=== PATIENT | male | born 1960 | race Caucasian/White ===

== ENCOUNTER 2016-05-26 10:26 | Inpatient (IN) ==
[2016-05-26] MEDS ORDERED: MIDAZOLAM 2 MG/2 ML VIAL ONE ×4 (10:29→11:57)
[2016-05-26] MEDS ORDERED: SODIUM CHLORIDE 0.9% 1,000 ML IV STA (10:32)
[2016-05-26] MEDS ORDERED: MIDAZOLAM 2 MG/2 ML VIAL IV STA ×4 (10:34→12:15)
[2016-05-26] MEDS ORDERED: VECURONIUM 10 MG VIAL IV ONE (10:36)
[2016-05-26] MEDS ORDERED: VECURONIUM 10 MG VIAL IV STA (10:50)
--- NOTE | 2016-05-26 10:59 | Emergency Department Note ---
Arrival - Arrival Chief Complaint: Shortness of Breath Stated Complaint: Resp distress Intubated ED Nursing Triage Note: Pt brought by EMS for decreased LOC, agonal resp., pale colored. Pt was found with a wiskey bottle next to him and unable to locate his valium bottle. Pt intubated by EMS COMPANION. Mode of Arrival: Stretcher Limitations: No Limitations Source: EMS, RN Notes Reviewed Time Seen by Provider: 05/26/16 10:32 - History of Present Illness HPI Narrative: Patient is a 55-year-old white male who was found unresponsive at home by his family. His bottle of Valium was empty and the patient had been drinking alcohol. The patient was not breathing upon arrival of EMS. The patient was intubated and had improvement in his color. In route he began breathing some on his own. The patient is unable to provide a history due to being intubated. Onset (ago): hour(s) (1) Consistency: constant Severity: severe Quality: other (Drug and alcohol OD) Allergies/Adverse Reactions: Allergies Allergy/AdvReac Type Severity Reaction Status Date / Time No Known Allergies Allergy Verified 05/26/16 10:35 Home Medications: Home Medications Medication Instructions Recorded Confirmed Type Unable To Obtain [Unable to Obtain] 12/11/15 12/11/15 History Review of System - Review of System ROS unobtainable: due to endotracheal tube Medical,Surgical,& Family Hx - Social History Smoking Status: Unknown if ever smoked Frequency of Alcohol Use: Frequently Type of Drug Use: Prescription Drug Abuse Functional capacity: independent ambulation Exam Vital Signs: Vital Signs Temperature 96.7 F L 05/26/16 10:27 Pulse Rate 107 H 05/26/16 10:27 Respiratory Rate 12 05/26/16 10:56 Blood Pressure 140/77 05/26/16 10:27 O2 Sat by Pulse Oximetry 100 05/26/16 10:27 GENERAL: This is a acutely ill-appearing white male with endotracheal tube in position. VITAL SIGNS: Reviewed HEENT: Head is atraumatic and normocephalic. Pupils are equal round react to light. Extraocular movements are intact. Oropharynx is benign with moist mucous membranes. Endotracheal tube is present in the oropharynx. NECK: Neck is soft and supple without tenderness. There are no masses. There is no lymphadenopathy. LUNGS: Lungs are clear to auscultation. Breath sounds are equal bilaterally. Chest rises symmetrically. There is no chest wall tenderness. CV: Heart is regular rate and rhythm without murmurs rubs or gallops. ABDOMEN: Abdomen is soft, nontender to palpation. There are no abdominal abnormal masses palpated. There is no organomegaly. Bowel sounds are present and active. SKIN: Skin is warm and dry. No rash. EXTREMITIES: Patient has full range of motion without tenderness. There is no pedal edema. NEUROLOGIC: Arousable, moves all extremities. Patient has purposeful movements attempting to pull out the ET tube. Course - Consultations Consultation #1: Discussed with hospitalist. Patient will be admitted to their service. Time: 11:08 Procedures - ABG Interpretation ABG Interpretation 1 Interpretation: respiratory acidosis, metabolic acidosis, other (Acute respiratory failure with mixed respiratory and metabolic acidosis.) Results - Labs CBC & BMP: 05/26/16 10:50 05/26/16 10:50 Lab Results: I have reviewed the patients labs Labs: Laboratory Tests 05/26/16 10:50 WBC 21.3 H Hgb 15.4 Hct 47.0 Plt Count 237 Laboratory Tests 05/26/16 05/26/16 05/26/16 10:43 10:46 10:50 ABG pH 7.298 L ABG pCO2 49.5 H ABG pO2 128.0 H ABG HCO3 22.0 ABG Total CO2 21.0 L ABG O2 Saturation 98.4 ABG Base Excess -3.0 L Sodium Potassium Chloride Carbon Dioxide Anion Gap BUN Creatinine GFR Calculation BUN/Creatinine Ratio Glucose Calculated Osmolality Lactic Acid 4.4 H Calcium Magnesium 2.6 H AST ALT Troponin I 0.371 H Serum Alcohol < 15 L 05/26/16 10:50 ABG pH ABG pCO2 ABG pO2 ABG HCO3 ABG Total CO2 ABG O2 Saturation ABG Base Excess Sodium 147 H Potassium 4.7 Chloride 108 H Carbon Dioxide 27 Anion Gap 16.7 H BUN 9 Creatinine 1.90 H GFR Calculation 45 BUN/Creatinine Ratio 4.00 L Glucose 239 H Calculated Osmolality 298.4 Lactic Acid Calcium 8.8 Magnesium AST 38 H ALT 56 Troponin I Serum Alcohol - EKG EKG results: interpreted by ERMD - Impressions EKG: Sinus tachycardia with rate of 101, nonspecific intraventricular conduction delay. Normal axis. Nonspecific ST-T wave changes. - Diagnostic Findings Procedure: Chest x-ray: image reviewed by me (Right upper lobe infiltrate. Endotracheal tube is in position between the clavicular heads and above the lucian.), KUB x-ray: image reviewed by me (Nonspecific gas pattern. No radiopaque pill fragments are visualized.) Disposition Clinical Impression: Benzodiazepine overdose, Alcohol ingestion, Aspiration pneumonia, Acute respiratory failure, Lactic acidosis Disposition: Still a Patient Condition: Critical Time of Disposition: 11:01
[2016-05-26 11:00] LABS: Basophils # 0.1 10*3/uL (0.0-0.2); Basophils % 0.3 % (0.0-0.8); Eosinophils % 0.2 % (0.00-10.9); Hemoglobin 15.4 GM/DL (14.0-18.0); Immature Granulocytes % 1.5 %; Immature Granulocytes Absolute 0.32 #; Lymphocytes # 1.4 10*3/uL (1.4-4.0); Lymphocytes % 6.7 % (21.2-54.2); Mean Corpuscular HGB Conc 32.8 GM/DL (32-36); Mean Corpuscular Hemoglobin 32 PG (27-34); Mean Corpuscular Volume 96.7 FL (87-102); Mean Platelet Volume 11.3 FL (9.6-12.0); Monocytes % 4.7 % (1.7-12.7); Neutrophils # 18.4 10*3/uL (1.4-7.4); Neutrophils % 86.6 % (38.7-73.9); Platelet Count 237 10*3/uL (130-400); Red Blood Count 4.86 10*6/uL (3.8-5.5); Red Cell Distribution Width 13.3 % (9.3-17.3); White Blood Count 21.3 10*3/uL (4.5-13.71)
[2016-05-26 11:00] LABS: ABG Oxygen Saturation 98.4 % (95-100); ABG PCO2 49.5 MM HG (35-48); ABG PH 7.298 (7.35-7.45)
[2016-05-26] MEDS ORDERED: MIDAZOLAM 100 MG in SODIUM CHLORIDE 0.9% 80 ML IV SCH (11:00)
[2016-05-26] MEDS ORDERED: PIPERACILLIN/TAZOBACTAM 3,375 MG in SODIUM CHLORIDE 0.9% 100 ML IV STA (11:04)
[2016-05-26 11:08] LABS: PT Patient Result 10.5 SECS
--- NOTE | 2016-05-26 11:08 | EKG Report ---
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
[2016-05-26 11:22] LABS: Lactic Acid 4.4 MMOL/L (0.4-2.0)
[2016-05-26] MEDS ORDERED: SODIUM CHLORIDE 0.9% 100 ML IV ONE (11:24)
[2016-05-26] MEDS ORDERED: PIPERACILLIN/TAZOBACTAM 3,375 MG VIAL IV ONE (11:24)
[2016-05-26 11:26] LABS: Magnesium 2.6 MG/DL (1.8-2.4)
--- NOTE | 2016-05-26 11:27 | CT Report ---
Referring physician: Philip Calderón Exam: CT brain without contrast Date: May 26, 2016 Comparison: CT brain without contrast December 11, 2015 Reason: Mental status changes The patient is an Emergency Department patient on May 26, 2016. Technique: Axial images of the head were obtained without the use of contrast. Total DLP was 970.1 mGy*cm. Findings: No hydrocephalus or midline shift is present. There is no evidence of an acute infarction, recent intracranial hemorrhage or abnormal mass effect. The osseous structures appear intact. There is scattered mucosal thickening within the bilateral ethmoid air cells and minimal mucosal thickening within the sphenoid sinuses. The mastoid air cells are clear. Impression: 1. No acute intracranial process is identified. 2. Mild sinus disease. The CT exam was performed using one or more of the following dose reduction techniques: Automated exposure control and adjustment of the mA and/or kV according to patient size. PROCEDURE INTERPRETED AT [facility] DEPARTMENT OF RADIOLOGY Final Report Signed by: Dr. Marissa Gunter
--- NOTE | 2016-05-26 11:30 | XRay Report ---
Single view of the chest. Indication: Overdose. The heart is normal in size. An endotracheal tube is at the T3 level, well above the lucian. There is a right upper lobe infiltrate. No pneumothorax. Mild hypoaeration of the lung bases. No pleural effusion. Impression: Basilar hypoaeration. Right upper lobe infiltrate. PROCEDURE INTERPRETED AT [facility] DEPARTMENT OF RADIOLOGY Final Report Signed by: Dr. Charity Bunn
[2016-05-26 11:31] LABS: Alanine Aminotransferase 56 U/L (16-61); Albumin 4.1 G/DL (3.4-5.0); Alkaline Phosphatase 128 U/L (45-117); Aspartate Amino Transferase 38 U/L (0-37); Bilirubin,Total < 0.39 MG/DL (0.2-1.0); Blood Urea Nitrogen 9 MG/DL (7-18); Calcium 8.8 MG/DL (8.5-10.1); Glucose 239 MG/DL (74-106); Osmolality,Calculated 298.4 MOS/KG (273-304); Potassium 4.7 MMOL/L (3.5-5.1); Sodium 147 MMOL/L (136-145)
[2016-05-26 11:33] LABS: Troponin I Only 0.371 NG/ML (0.00-0.045)
--- NOTE | 2016-05-26 11:35 | XRay Report ---
Referring Physician: Philip Calderón Exam: XR KUB Date: May 26, 2016 at 10:44 AM Reason: Overdose Comparison: None Findings: There are mildly distended loops of small bowel within the mid abdomen, but there is mild scattered air within the colon. This could represent partial small bowel obstruction or ileus. No free air is identified. A 0.8 cm density is seen within the right abdomen and likely represents a right renal calculus. There is mild degenerative change at the spine, but no acute osseous process is identified. Impression: 1. There are mildly distended loops of small bowel within the mid abdomen, but there is mild scattered air within the colon. This could represent partial small bowel obstruction or ileus. 2. Probable right renal calculus. PROCEDURE INTERPRETED AT [facility] DEPARTMENT OF RADIOLOGY Final Report Signed by: Dr. Marissa Gunter
[2016-05-26 11:47] LABS: Lymphocytes 8 % (20-55); Platelet Estimate Adequate; Segmented Neutrophils 91 % (50-85); Total Cells Counted 100
[2016-05-26] MEDS ORDERED: ROCURONIUM 100 MG/10 ML VIAL IV ONE (12:02)
[2016-05-26] MEDS ORDERED: ROCURONIUM 100 MG/10 ML VIAL IV STA ×2 (12:15→12:17)
[2016-05-26 12:22] LABS: Apearance,Urine Slightly Hazy (Clear); Bacteria,Urine Occasional /HPF (Few); Bilirubin,Urine Negative (Negative); Blood, Urine Negative (Negative); Glucose,Urine (UA) >=500 mg/dL (Negative); Hyaline Casts,Urine 10 /LPF (0-3); Ketones,Urine Negative (Negative); Mucus,Urine Occasional /LPF (Occasional); Nitrite,Urine Negative (Negative); Protein,Urine Negative; RBC,Urine 1 /HPF (0-4); Squamous Epithelial Cell,Urine Occasional /HPF (0-10); Urine Color Yellow (Yellow); Urine Specific Gravity 1.013 (1.001-1.035); Urine Urobilinogen < 2.0 EU/DL (0.2-1.0); WBC,Urine 1 /HPF (0-6)
[2016-05-26] MEDS ORDERED: SODIUM CHLORIDE 0.9% 1,000 ML IV SCH (12:30)
[2016-05-26 12:39] LABS: Barbiturates Screen,Urine Negative (Negative); Benzodiazepines Screen,Urine Positive (Negative); Cannabinoid Screen,Urine Negative (Negative); Opiate Screen,Urine Positive (Negative); Phencyclidine Screen,Urine Negative (Negative)
[2016-05-26] MEDS ORDERED: ALBUTEROL 2.5 MG/3 ML NEB RESP TX PRN (12:48)
[2016-05-26] MEDS ORDERED: MORPHINE 2 MG/1 ML SYRINGE IV PRN (12:48)
[2016-05-26] MEDS ORDERED: ACETAMINOPHEN 325 MG TABLET PO PRN (12:48)
[2016-05-26] MEDS ORDERED: SODIUM CHLORIDE 0.9% 1,000 ML IV ONE ×2 (12:48→15:54)
[2016-05-26] MEDS ORDERED: ONDANSETRON 4 MG/2 ML VIAL IV PRN (12:48)
[2016-05-26] MEDS: PROPOFOL 1,000 MG/100 ML BOTTLE IV SCH (13:10)
[2016-05-26] MEDS: ENOXAPARIN 40 MG/0.4 ML SYRINGE SUBCUT SCH (14:00)
[2016-05-26] MEDS: PANTOPRAZOLE 40 MG VIAL IV SCH (14:01)
[2016-05-26] MEDS: SODIUM CHLORIDE 0.9% 1,000 ML IV SCH ×2 (14:27→20:47)
--- NOTE | 2016-05-26 14:59 | Hospitalist History & Physical ---
Assessment and Plan - Time spent with patient Time spent with patient: Greater than 30 minutes (due to assessment, plan and documentation.) (1) Acute respiratory failure Status: Acute Assessment and plan: on vent Pulmonary has been consulted for vent mgmt Current Visit: Yes (2) Elevated troponin Status: Acute Current Visit: Yes (3) Aspiration pneumonia Status: Acute Assessment and plan: continue zosyn for aspiration pna. Current Visit: Yes (4) Lactic acidosis Status: Acute Current Visit: Yes History of Present Illness Chief complaint: acute respiratory failure per EMS History of present illness: Mr. Rinaldi is a 55 year old male who was found by his mother this morning unresponsive and barely breathing. She activated EMS and he was intubated on scene. History is minimal and is given by a family friend and a Radio Television Technical Director. Mr. Rinaldi is on the vent, and has received some sedating medication. Per EMS and friend's report, a bottle of whiskey was found by him, and a receipt for a sleeping aid that was purchased yesterday with a good many of the pills missing. Also missing was a bottle of Valium. He does have a past medical history significant for anxiety. When asked if he drinks or takes pills, he shakes his head "no". His labs show: WBC 21.3 CXR RUL infiltrate, pH 7.298 pCO2 49.5 pO2 128.0, sodium 147, Creatinine 1.9, GFR 45, troponin elevated at 0.371, repeat was 0.728. His UDS was positive for opiates, benzos and his serum etoh was < 15. CT head was negative. KUB showed "mildly distended loops of small bowel within the mid abdomen, but there is a mild scattered air within the colon. This could represent partial SBO or ileus". BP initially 118/86. Radio Television Technical Director and friend did mention that they would attempt to get records from his doctor in [place]. He reported that he is followed by [facility]adou in [place] for bipolar disorder. He was admitted to ICU and Pulmonary was consulted for vent management. Serial trponins, CBC, CMP have been ordered. He lives at home with his elderly parents and typically functions independently. Further plan and addendum to follow by Dr. Katja Barnett. Home Medications Medication Instructions Recorded Confirmed Type Unable To Obtain [Unable to Obtain] 12/11/15 12/11/15 History Allergies Allergy/AdvReac Type Severity Reaction Status Date / Time No Known Allergies Allergy Verified 05/26/16 10:35 Medical,Surgical,& Family Hx - Medical History Psychological: History of: Bipolar Disorder, Schizophrenia - Social History Smoking Status: Unknown if ever smoked Frequency of Alcohol Use: Frequently Type of Drug Use: Unknown, Prescription Drug Abuse Marital Status: Lives With:: Parent Functional capacity: independent ambulation (typically) ROS unobtainable: due to endotracheal tube Exam - Constitutional Vitals: Period Temp Pulse Resp BP Sys/Botello Pulse Ox Last 24 Hr 96.7 F-98.6 F 85-112 12-20 78-140/52-86 100-100 General appearance: normal weight, no acute distress (sedated on vent.) - Head Head exam: Present: normal inspection, normocephalic - Eye Eye exam: Absent: scleral icterus - ENT ENT exam: Present: other (on vent. ET tube in place and secured. ) - Neck Neck exam: Present: normal inspection. Absent: lymphadenopathy - Respiratory Respiratory exam: Present: clear to auscultation bilaterally. Absent: accessory muscle use - Cardiovascular Cardiovascular exam: Present: regular rate and rhythm - GI/Abdominal GI/Abdominal exam: Present: normal bowel sounds, soft. Absent: tenderness - Extremities Exam Extremities exam: Present: normal inspection. Absent: edema - Back Exam Back exam: Present: normal inspection. Absent: muscle spasm - Neurological Exam Neurological exam: Present: other (sedated on vent. ) - Psychiatric Psychiatric exam: Present: other (sedated on vent) - Skin Skin exam: Present: normal color, warm, dry, intact Results - Labs CBC & BMP: 05/26/16 10:50 05/26/16 10:50 Lab Results: I have reviewed the past 24 hour labs - Diagnostic Findings Procedure: X-ray: report reviewed by me (RUL infiltrate)
--- NOTE | 2016-05-26 15:43 | Pulmonology Consult Note ---
Assessment and Plan (1) Benzodiazepine overdose Status: Acute Assessment and plan: The patient was found obtunded and is now intubated on the ventilator. Current Visit: Yes (2) Aspiration pneumonia Status: Acute Assessment and plan: Patient certainly could have aspiration pneumonia and we will watch for worsening respiratory failure. Current Visit: Yes (3) Acute respiratory failure Status: Acute Assessment and plan: Patient is on the ventilator and will adjust his ventilator and continue support. Current Visit: Yes (4) Lactic acidosis Status: Acute Assessment and plan: He is getting IV fluids at the present time. Current Visit: Yes (5) Elevated troponin Status: Acute Assessment and plan: He has been monitored for cardiac ischemia. He does have a low blood pressure. Current Visit: Yes History of Present Illness Chief complaint: ventilator History of present illness: Mr. Rinaldi is a 55 year old white male that was brought in this morning after being found obtunded. He apparently had agonal breathing and was intubated. He was found lying in too risky vital but his alcohol level was low. He does have opiates and benzodiazepines in his system. He apparently does take Valium. He has had hypotension and lactic acidosis. He is getting volume replacement and antibiotics on the ventilator. He does have slightly right lung infiltrate and may have aspirated. He apparently has a history of bipolar disorder. He does smoke cigarettes. Home Medications Medication Instructions Recorded Confirmed Type Unable To Obtain [Unable to Obtain] 12/11/15 12/11/15 History Allergies Allergy/AdvReac Type Severity Reaction Status Date / Time No Known Allergies Allergy Verified 05/26/16 10:35 ROS unobtainable: due to endotracheal tube (he is unable to give any history.) Exam (Pulmonay) H&P - Constitutional Vitals: Period Temp Pulse Resp BP Sys/Botello Pulse Ox Last 24 Hr 96.7 F-98.6 F 79-112 12-20 78-140/52-86 100-100 General appearance: normal weight, mild distress, other (he does arouse while he is on the ventilator.) - Head Head exam: Present: normal inspection - Eye Eye exam: Present: EOMI. Absent: scleral icterus Pupils: Present: JAMESON - ENT ENT exam: Present: normal exam, other (ET tube is in good position) - Neck Neck exam: Present: normal inspection. Absent: lymphadenopathy, thyromegaly - Respiratory Respiratory exam: Present: rhonchi, other (he has good breath sounds bilaterally ). Absent: accessory muscle use - Cardiovascular Cardiovascular exam: Present: regular rate and rhythm, tachycardia. Absent: gallop, JVD, systolic murmur - GI/Abdominal GI/Abdominal exam: Present: distended, hypoactive bowel sounds, soft. Absent: organomegaly, tenderness - Extremities Exam Extremities exam: Absent: calf tenderness, edema - Neurological Exam Neurological exam: Present: other (he arouses and is on the ventilator.) - Skin Skin exam: Present: warm, dry Medical,Surgical,& Family Hx - Medical History Psychological: History of: Bipolar Disorder, Schizophrenia - Social History Smoking Status: Current every day smoker Frequency of Alcohol Use: Frequently Type of Drug Use: Unknown, Prescription Drug Abuse Results - Labs CBC & BMP: 05/26/16 10:50 05/26/16 10:50 Labs: His PO2 is 128 with a PCO2 of 49 pH is 7.29 - Diagnostic Findings Procedure: Chest x-ray: image reviewed by me, report reviewed by me (chest x- ray shows slight infiltrate in the right lung.)
[2016-05-26] MEDS: LORazepam 2 MG/1 ML VIAL IV PRN ×2 (16:32→22:37)
[2016-05-26] MEDS: HYDROCORTISONE 100 MG VIAL IV SCH (16:33)
[2016-05-26] MEDS ORDERED: THIAMINE 200 MG/2 ML VIAL IV ONE (20:44)
[2016-05-26] MEDS: PIPERACILLIN/TAZOBACTAM 3,375 MG in SODIUM CHLORIDE 0.9% 100 ML IV SCH (20:46)
[2016-05-26] MEDS: HALOPERIDOL 5 MG/ML AMP IV PRN (22:38)
--- NOTE | 2016-05-26 22:38 | XRay Report ---
Exam: XR chest 1V portable Date: 05/26/2016 10:18 PM Indication: Endotracheal tube placement, followup Comparison: 05/26/2016 at 10:42 AM Technical:AP semierect portable Findings: Endotracheal tube is located at the level of the mid clavicle just superior to the aortic knob. Mild cardiac enlargement present. There is decreasing alveolar density in the right midlung zone laterally with some residual interstitial thickening infiltrate in the right infrahilar region present. No pneumothorax. External cardiac leads are present. Mediastinum is intact. ASVD is present. Impression: 1. Improving aeration with decreasing alveolar edema 2. Stable appearance of endotracheal tube with some persistent area of interstitial infiltrate in the infrahilar regions right greater than left PROCEDURE INTERPRETED AT [facility] DEPARTMENT OF RADIOLOGY Final Report Signed by: Dr. Foreign Ledesma
[2016-05-27] MEDS: PROPOFOL 1,000 MG/100 ML BOTTLE IV SCH ×3 (00:14→14:33)
[2016-05-27] MEDS: HYDROCORTISONE 100 MG VIAL IV SCH ×3 (00:20→16:59)
[2016-05-27 03:31] LABS: ABG Base Excess -0.5 MMOL/L (-2.5-2.5); ABG HCO3 21.8 MMOL/L (20-26); ABG Oxygen Saturation 98.8 % (95-100); ABG PCO2 29.6 MM HG (35-48); ABG PH 7.486 (7.35-7.45); ABG PO2 182.2 MM HG (80-95); ABG TCO2 22.8 MMOL/L (23-27); Allen Test Positive; Pt O2 Delivery Device Ventilator
[2016-05-27] MEDS: PIPERACILLIN/TAZOBACTAM 3,375 MG in SODIUM CHLORIDE 0.9% 100 ML IV SCH ×3 (04:15→20:14)
[2016-05-27] MEDS: HALOPERIDOL 5 MG/ML AMP IV PRN (04:26)
[2016-05-27 04:45] LABS: Basophils % 0.2 % (0.0-0.8); Eosinophils % 0.3 % (0.00-10.9); Hematocrit 36.5 VOL% (42.0-52.0); Hemoglobin 12.4 GM/DL (14.0-18.0); Immature Granulocytes % 0.4 %; Immature Granulocytes Absolute 0.05 #; Lymphocytes % 15.5 % (21.2-54.2); Mean Corpuscular Hemoglobin 31 PG (27-34); Mean Corpuscular Volume 91.9 FL (87-102); Mean Platelet Volume 11.9 FL (9.6-12.0); Monocytes # 0.7 10*3/uL (0.11-0.8); Monocytes % 5.6 % (1.7-12.7); Neutrophils # 10.1 10*3/uL (1.4-7.4); Platelet Count 187 10*3/uL (130-400); Red Blood Count 3.97 10*6/uL (3.8-5.5); Red Cell Distribution Width 13.3 % (9.3-17.3)
[2016-05-27] MEDS: SODIUM CHLORIDE 0.9% 1,000 ML IV SCH ×3 (05:04→21:32)
[2016-05-27 05:24] LABS: Albumin 2.9 G/DL (3.4-5.0); Bilirubin,Total 1.1 MG/DL (0.2-1.0); Calcium 8.2 MG/DL (8.5-10.1); Magnesium 2.1 MG/DL (1.8-2.4); Total Protein 5.2 G/DL (6.4-8.3)
--- NOTE | 2016-05-27 06:49 | XRay Report ---
Portable chest. Indication: Shortness of breath. Comparison: May 26, 2016. Mild atelectasis is present at the lung bases. This is similar to the previous study. Endotracheal tube remains in satisfactory position. Heart size is normal. Impression: No significant interval change. PROCEDURE INTERPRETED AT [facility] DEPARTMENT OF RADIOLOGY Final Report Signed by: Dr. Charity Bunn
--- NOTE | 2016-05-27 07:41 | Pulmonology Progress Note ---
Pulmonary - PN: Subj Interval history: Patient is a 55-year-old white man that was found obtunded and has been intubated. He was felt to have taken too many benzodiazepines along with some narcotics. He has a history of a bipolar disorder. He is felt to possibly have aspirated some. Now he looks quite stable on the ventilator although he still gets very agitated at times. His oxygenation is better and his chest x- ray is clear. Exam (Progress Note) - Constitutional Vitals: Period Temp Pulse Resp BP Sys/Botello Pulse Ox Last 24 Hr 96.7 F-98.6 F 55-112 12-21 78-140/51-86 98-100 Exam: General appearance: normal weight, no distress, other (he is sedated and stable on the ventilator at present. ) - Head Head exam: Present: normal inspection - Eye Eye exam: Present: EOMI. Absent: scleral icterus Pupils: Present: JAMESON - ENT ENT exam: Present: normal exam, other (ET tube is in good position) - Neck Neck exam: Present: normal inspection. Absent: lymphadenopathy, thyromegaly - Respiratory Respiratory exam: Present: He has good breath sounds bilaterally is moving air okay without any wheezing. - Cardiovascular Cardiovascular exam: Present: regular rate and rhythm. Absent: gallop, JVD, systolic murmur - GI/Abdominal GI/Abdominal exam: Present: distended, hypoactive bowel sounds, soft. Absent: organomegaly, tenderness - Extremities Exam Extremities exam: Absent: calf tenderness, edema - Neurological Exam Neurological exam: Present: other (he did get very agitated last night and is now sedated.) - Skin Skin exam: Present: warm, dry Results - Labs CBC & BMP: 05/27/16 04:04 05/27/16 04:04 Labs: His PO2 is 182 with a PCO2 of 29 and a pH of 7.486 - Diagnostic Findings Procedure: Chest x-ray: image reviewed by me, report reviewed by me (chest x- ray is clear) Assessment and Plan (1) Benzodiazepine overdose Status: Acute Assessment and plan: The patient was found obtunded and is now intubated on the ventilator. He appears to be fairly stable on the ventilator. Current Visit: Yes (2) Aspiration pneumonia Status: Acute Assessment and plan: Patient likely did aspirate some but his x-ray is clear now. Current Visit: Yes (3) Acute respiratory failure Status: Acute Assessment and plan: Patient is stable on the ventilator and can probably come off at any time. Current Visit: Yes (4) Lactic acidosis Status: Acute Assessment and plan: He is getting IV fluids at the present time. His acidosis has resolved. Current Visit: Yes (5) Elevated troponin Status: Acute Assessment and plan: He has been monitored for cardiac ischemia. His blood pressure still on the low side. His renal function is better. He appears to be stable. Current Visit: Yes
[2016-05-27] MEDS ORDERED: FOLIC ACID 5 MG/1 ML VIAL IV SCH (09:00)
--- NOTE | 2016-05-27 09:13 | Hospitalist Progress Note ---
Assessment and Plan (1) Aspiration pneumonia Status: Acute Assessment and plan: 1)resp failure after drug ingestion- from history sounds like he took "sleep aid " from drug store and prob some of his valium. UDS also positive for opiates. His alcohol level was undetectable and he did not smell of alcohol. plans for extubation today. has history of psych illness. 2)elevated troponin- coming down 3)aspiration pneumonia- on Zosyn 4)lactic acidosis- repeat lactic acid level today. Current Visit: Yes (2) Benzodiazepine overdose Status: Acute Current Visit: Yes (3) Acute respiratory failure Status: Acute Current Visit: Yes (4) Lactic acidosis Status: Acute Current Visit: Yes (5) Elevated troponin Status: Acute Current Visit: Yes Hospitalist: Subjective Interval history: Mr Rinaldi is stable on vent. He required haldol and ativan to supplement diprivan for sedation. Plans are for extubation today. Exam - Constitutional Vitals: Period Temp Pulse Resp BP Sys/Botello Pulse Ox Last 24 Hr 96.7 F-98.6 F 55-112 12-21 78-140/51-86 98-100 General appearance: no acute distress, over weight - Head Head exam: Present: normocephalic, atraumatic - Eye Eye exam: Present: EOMI, scleral icterus Pupils: Present: JAMESON - Respiratory Respiratory exam: Present: clear to auscultation bilaterally - Cardiovascular Cardiovascular exam: Present: regular rate and rhythm - GI/Abdominal GI/Abdominal exam: Present: normal bowel sounds, soft. Absent: tenderness - Extremities Exam Extremities exam: Absent: edema - Neurological Exam Neurological exam: Present: other (becomes alert quickly, and reaches for ETT, nods and shakes to questions) - Skin Skin exam: Present: warm, dry Results - Labs CBC & BMP: 05/27/16 04:04 05/27/16 04:04 Lab Results: I have reviewed the past 24 hour labs
[2016-05-27] MEDS: THIAMINE 200 MG/2 ML VIAL IV SCH (09:36)
[2016-05-27] MEDS: FOLIC ACID INJ 1 MG in SYRINGE 1 EACH IV SCH (09:49)
[2016-05-27] MEDS: ENOXAPARIN 40 MG/0.4 ML SYRINGE SUBCUT SCH (14:20)
[2016-05-27] MEDS: LORazepam 2 MG/1 ML VIAL IV PRN (14:20)
[2016-05-27] MEDS: PANTOPRAZOLE 40 MG VIAL IV SCH (14:20)
[2016-05-27] MEDS ORDERED: chlordiazePOXIDE 10 MG CAPSULE PO SCH (17:00)
[2016-05-27] MEDS: DIAZEPAM 5 MG TABLET PO SCH (20:16)
--- NOTE | 2016-05-27 21:25 | ECHO Report ---
Todd Rinaldi 05/27/2016 Exam Date: 08:33 Referring Physician: Sherry BASHIRTechnologist: Age: 55 Ht (in): Wt (lb): MExam [facility] Gender: Echo [id number]: SOB, Resp. distress, overdose, mixeIndications:d resp. and metabolic acidosis BP: / HR: SinusRhythm: PoorTechnical Quality: IMPRESSIONS Normal LV systolic and diastolic function, ejection fraction 50-55%. Mild left ventricular hypertrophy. Mild mitral and tricuspid regurgitation. MEASUREMENTS (Male / Female) Normal Values 2D ECHO LV Diastolic Diameter PLAX 4.5 cm 4.2 - 5.9 / 3.9 - 5.3 cm LV Systolic Diameter PLAX 2.6 cm LV Fractional Shortening PLAX 43.1 % IVS Diastolic Thickness 1.3 cm 0.6 - 1.0 / 0.6 - 0.9 cm LVPW Diastolic Thickness 1.1 cm 0.6 - 1.0 / 0.6 - 0.9 cm RV Internal Dim ED PLAX 2.6 cm Aortic Root Diameter 2.5 cm LA Systolic Diameter LX 3.1 cm 3.0 - 4.0 / 2.7 - 3.8 cm DOPPLER TR Peak Velocity 157.0 cm/s TR Peak Gradient 9.9 mmHg FINDINGS Left Ventricle Mildly increased septal wall thickness. Mild concentric left ventricular hypertrophy with diastolic dysfunction. Left ventricular ejection fraction is estimated at 50-55 %. Right Ventricle Normal right ventricular size. Right Atrium Normal right atrial size. Left Atrium Normal left atrial size. Mitral Valve Mildly thickened mitral valve with mild mitral regurgitation. Aortic Valve Aortic valve sclerosis without stenosis or regurgitation. Tricuspid Valve Morphologically normal tricuspid valve. Trace tricuspid valve regurgitation. Pulmonic Valve Morphologically normal pulmonic valve. Pericardium No pericardial effusion. Aorta Normal size aortic root and proximal ascending aorta. Roxana Saenz MD (Electronically Signed) 27 May 2016 Final Date: 21:24
[2016-05-28] MEDS: HYDROCORTISONE 100 MG VIAL IV SCH ×4 (00:16→16:46)
[2016-05-28] MEDS: PIPERACILLIN/TAZOBACTAM 3,375 MG in SODIUM CHLORIDE 0.9% 100 ML IV SCH ×2 (05:20→12:03)
[2016-05-28] MEDS: SODIUM CHLORIDE 0.9% 1,000 ML IV SCH (05:32)
[2016-05-28] MEDS: DIAZEPAM 5 MG TABLET PO SCH ×2 (08:34→21:51)
[2016-05-28] MEDS: FOLIC ACID INJ 1 MG in SYRINGE 1 EACH IV SCH (08:35)
[2016-05-28] MEDS: THIAMINE 200 MG/2 ML VIAL IV SCH (08:35)
--- NOTE | 2016-05-28 08:40 | Hospitalist Progress Note ---
Assessment and Plan (1) Aspiration pneumonia Status: Acute Assessment and plan: 1)resp failure after drug ingestion- from history sounds like he took "sleep aid " from drug store and prob some of his valium acording to is friends. UDS also positive for opiates. His alcohol level was undetectable and he did not smell of alcohol. He was extubated and has done well. Transfer to the floor with 1:1 observation for a while longer. has history of psych illness. 2)elevated troponin- recheck this morning. It was coming down yesterday. Consult cardiology- he may need stress test for risk stratification. 3)aspiration pneumonia- on Zosyn, WBC down, sats good on 2L NC, no cough, no shortness of breath. Taper hydrocortisone- can likely change to oral tomorrow. 4)lactic acidosis- resolved. 5)alcohol history- history equivocal from family, he says he hasn't been drinking recently. change thiamine and folate to oral. on valium. 6)hypernatremia- change to 1/2 NS, recheck in am. Current Visit: Yes (2) Benzodiazepine overdose Status: Acute Current Visit: Yes (3) Acute respiratory failure Status: Acute Current Visit: Yes (4) Lactic acidosis Status: Acute Current Visit: Yes (5) Elevated troponin Status: Acute Current Visit: Yes Hospitalist: Subjective Interval history: Mr Rinaldi has done well since extubation. He does not remember what happened to cause him to be unresponsive prior to admission. He dosnot remember taking pills or other drugs including extra valium, and denies suicidal or homicidal ideation or plan. He denies shortness of breath. He sat up in a chair yesterday and slept well last night. His basketball commentator visited yesterday. Exam - Constitutional Vitals: Period Temp Pulse Resp BP Sys/[place] Pulse Ox Last 24 Hr 98.0 F-99 F 60-106 10-75 78-161/39-89 95-100 General appearance: no acute distress, over weight - Head Head exam: Present: normocephalic, atraumatic - Eye Eye exam: Present: EOMI. Absent: scleral icterus Pupils: Present: JAMESON - Respiratory Respiratory exam: Present: clear to auscultation bilaterally - Cardiovascular Cardiovascular exam: Present: regular rate and rhythm. Absent: diastolic murmur , systolic murmur - GI/Abdominal GI/Abdominal exam: Present: normal bowel sounds, soft. Absent: tenderness - Extremities Exam Extremities exam: Absent: edema - Neurological Exam Neurological exam: Present: alert, oriented X3, CN II-XII intact. Absent: motor sensory deficit - Psychiatric Psychiatric exam: Present: normal affect, normal mood - Skin Skin exam: Present: warm, dry Results - Labs CBC & BMP: 05/27/16 04:04 05/27/16 04:04 Lab Results: I have reviewed the past 24 hour labs
[2016-05-28] MEDS: THIAMINE 100 MG TABLET PO SCH (09:19)
[2016-05-28] MEDS: FOLIC ACID 1 MG TABLET PO SCH (09:19)
--- NOTE | 2016-05-28 09:21 | Pulmonology Progress Note ---
Pulmonary - PN: Subj Interval history: Patient is a 55-year-old white man that was found obtunded and has been intubated. He was felt to have taken too many benzodiazepines along with some narcotics. He has a history of a bipolar disorder. He is felt to possibly have aspirated some. He did well on the ventilator in yesterday he was extubated. He is not having any breathing trouble and says he is coughing okay. He says he is not short of breath. He says he didn't really doesn't remember what happened. At present he is feeling much better. Exam (Progress Note) - Constitutional Vitals: Period Temp Pulse Resp BP Sys/[place] Pulse Ox Last 24 Hr 98.0 F-99 F 68-106 10-75 111-161/66-89 95-100 Exam: General appearance: normal weight, no distress, other (he is alert and talking and seems comfortable.) - Head Head exam: Present: normal inspection - Eye Eye exam: Present: EOMI. Absent: scleral icterus Pupils: Present: JAMESON - ENT ENT exam: Present: normal exam - Neck Neck exam: Present: normal inspection. Absent: lymphadenopathy, thyromegaly - Respiratory Respiratory exam: Present: He has good breath sounds bilaterally and his lungs sound reasonably clear now. - Cardiovascular Cardiovascular exam: Present: regular rate and rhythm. Absent: gallop, JVD, systolic murmur - GI/Abdominal GI/Abdominal exam: Present: distended, hypoactive bowel sounds, soft. Absent: organomegaly, tenderness - Extremities Exam Extremities exam: Absent: calf tenderness, edema - Neurological Exam Neurological exam: Present: other (he is alert and moving everything okay. He seems to be quite stable now.) - Skin Skin exam: Present: warm, dry Results - Labs CBC & BMP: 05/27/16 04:04 05/27/16 04:04 Assessment and Plan (1) Benzodiazepine overdose Status: Acute Assessment and plan: The patient has come around nicely and is doing well off the ventilator. He is alert and seems to be comfortable. Current Visit: Yes (2) Aspiration pneumonia Status: Acute Assessment and plan: Patient likely did aspirate some but his x-ray is clear now. He is not showing any signs of pneumonia now. Current Visit: Yes (3) Acute respiratory failure Status: Acute Assessment and plan: Patient came off the ventilator nicely and he is not having any respiratory distress now. His pulmonary status is stable and I will sign off ,Thanks Current Visit: Yes (4) Lactic acidosis Status: Resolved Assessment and plan: He is getting IV fluids at the present time. His acidosis has resolved. Current Visit: No (5) Elevated troponin Status: Acute Assessment and plan: He is comfortable and not having any chest pain and no signs of ischemia now. His blood pressure is much better. Current Visit: Yes
[2016-05-28] MEDS: PANTOPRAZOLE 40 MG TABLET PO SCH (09:30)
[2016-05-28] MEDS: SODIUM CHLORIDE 0.45% 1,000 ML IV SCH ×2 (09:30→20:45)
[2016-05-28] MEDS: ENOXAPARIN 40 MG/0.4 ML SYRINGE SUBCUT SCH (12:38)
[2016-05-29] MEDS: HYDROCORTISONE 100 MG VIAL IV SCH ×2 (01:20→09:38)
[2016-05-29] MEDS: PIPERACILLIN/TAZOBACTAM 3,375 MG in SODIUM CHLORIDE 0.9% 100 ML IV SCH ×2 (01:23→12:10)
[2016-05-29 06:36] LABS: Basophils # 0.1 10*3/uL (0.0-0.2); Basophils % 0.4 % (0.0-0.8); Eosinophils # 0.2 10*3/uL (0.0-0.87); Eosinophils % 1.5 % (0.00-10.9); Hematocrit 38.8 VOL% (42.0-52.0); Hemoglobin 13.3 GM/DL (14.0-18.0); Immature Granulocytes % 0.3 %; Immature Granulocytes Absolute 0.04 #; Lymphocytes # 2.4 10*3/uL (1.4-4.0); Lymphocytes % 20.7 % (21.2-54.2); Mean Corpuscular HGB Conc 34.3 GM/DL (32-36); Mean Corpuscular Hemoglobin 31 PG (27-34); Mean Corpuscular Volume 91.5 FL (87-102); Mean Platelet Volume 11.8 FL (9.6-12.0); Monocytes # 0.6 10*3/uL (0.11-0.8); Monocytes % 5.4 % (1.7-12.7); Neutrophils # 8.4 10*3/uL (1.4-7.4); Neutrophils % 71.7 % (38.7-73.9); Platelet Count 211 10*3/uL (130-400); Red Blood Count 4.24 10*6/uL (3.8-5.5); Red Cell Distribution Width 12.8 % (9.3-17.3); White Blood Count 11.7 10*3/uL (4.5-13.71)
[2016-05-29 07:03] LABS: Calcium 8.4 MG/DL (8.5-10.1); Osmolality,Calculated 290.3 MOS/KG (273-304); Potassium 3.7 MMOL/L (3.5-5.1)
[2016-05-29] MEDS: SODIUM CHLORIDE 0.45% 1,000 ML IV SCH (07:32)
[2016-05-29] MEDS ORDERED: INFLUENZA VIRUS VACCINE 0.5 ML SYRINGE IM ONE (09:00)
[2016-05-29] MEDS: THIAMINE 100 MG TABLET PO SCH (09:38)
[2016-05-29] MEDS: FOLIC ACID 1 MG TABLET PO SCH (09:38)
[2016-05-29] MEDS: DIAZEPAM 5 MG TABLET PO SCH (09:38)
[2016-05-29] MEDS: PANTOPRAZOLE 40 MG TABLET PO SCH (09:38)
[2016-05-29] MEDS: ENOXAPARIN 40 MG/0.4 ML SYRINGE SUBCUT SCH (13:43)
--- NOTE | 2016-05-29 15:45 | Cardiology Progress Note ---
Reece Bland Vanessa, RN, am scribing for, and in the presence of, Nasir Garcia MD 15:45. Assessment and Plan - Time spent with patient Time spent with patient: Less than 30 minutes (1) Elevated troponin Status: Acute Assessment and plan: Troponin elevated on admission at 0.371. Troponin peaked on 05/26/2016 at 0.805. Troponin yesterday morning was 0.152. Denies any cardiac symptoms or anginal complaint. He reports having had cardiac evaluation within the last 5 years which was negative. He does not remember the name of his doctor or the facility where testing was done. Will attempt to obtain old records from PCP and /or palm and back forger seen in past. Current Visit: Yes (2) Acute respiratory failure Status: Acute Current Visit: Yes (3) Alcohol ingestion Status: Acute Current Visit: Yes (4) Aspiration pneumonia Status: Acute Current Visit: Yes (5) Benzodiazepine overdose Status: Acute Current Visit: Yes (6) Lactic acidosis Status: Resolved Current Visit: No Cardiology - PN: Subj Interval history: Resting quietly, watching TV, appears comfortable. NADN. Denies chest pain, dyspnea, palpitation, presyncope, or other complaint. Sitter is at bedside. Hypertensive at times with SBP 150-160 / DBP 75-90 mmHg. Regular rate, rhythm. Labs unremarkable. Currently being evaluated for discharge to [place] for further treatment. This patient has troponin elevations are related to his hypoxemia and lactic acidosis related to hypotension and hypoperfusion with his drug overdose. I do not feel there is any further cardiac evaluation indicated. We will sign off. Please consult as needed. Exam (Progress Note) - Constitutional Vitals: Period Temp Pulse Resp BP Sys/[place] Pulse Ox Last 24 Hr 96.8 F-98.3 F 63-84 18-20 115-158/65-89 93-97 Exam: General: Present: Appears Well, No Apparent Distress HEENT: Present: Normocephaly, Mucus Membranes Moist Neck: Present: Supple Neck, Midline Trachea, No Masses, No Bruit, No Lymphadenopathy, No Thyromegaly Cardiac: Present: Reg Rate and Rhythm, No Murmur Lungs: Present: Normal Exam, Clear Ascult./Percussion, Normal Breath Sounds, No Wheeze, Rales, Rhonchi Neuro: Present: Grossly Intact. Absent: Resting Tremor, Essential Tremor Abdomen: Present: Soft, Active Bowel Sounds, No Masses, No Pulsations/Bruits, Non-Tender Skin: Present: Clear. Absent: Rash Musculoskeletal: Present: No Fluid Collection, No Pain, Normal Range of Motion Gait: Present: Normal Gait Extremities: Present: Normal Gait, No Clubbing, No Cyanosis, No Edema, Normal Upper Extr. Pulses, Normal Lower Extr. Pulses Result/EKG - Labs CBC & BMP: 05/29/16 04:46 05/29/16 04:46 Lab Results: I have reviewed the past 24 hour labs Labs: Laboratory Results - last 24 hr 05/28/16 05/28/16 05/29/16 12:05 18:10 01:31 WBC RBC Hgb Hct MCV MCH MCHC RDW Plt Count MPV Neut % (Auto) Lymph % (Auto) [place] % (Auto) Eos % (Auto) Baso % (Auto) Neut # (Auto) Lymph # (Auto) [place] # (Auto) Eos # (Auto) Baso # (Auto) Immature Gran % Nucleated RBC % Immature Gran # Nucleated RBCs # Sodium Potassium Chloride Carbon Dioxide Anion Gap BUN Creatinine GFR Calculation BUN/Creatinine Ratio Glucose POC Glucose 98 104 89 Calculated Osmolality Calcium 05/29/16 05/29/16 05/29/16 04:46 04:46 07:41 WBC 11.7 RBC 4.24 Hgb 13.3 L Hct 38.8 L MCV 91.5 MCH 31 MCHC 34.3 RDW 12.8 Plt Count 211 MPV 11.8 Neut % (Auto) 71.7 Lymph % (Auto) 20.7 L [place] % (Auto) 5.4 Eos % (Auto) 1.5 Baso % (Auto) 0.4 Neut # (Auto) 8.4 H Lymph # (Auto) 2.4 [place] # (Auto) 0.6 Eos # (Auto) 0.2 Baso # (Auto) 0.1 Immature Gran % 0.3 Nucleated RBC % 0.0 Immature Gran # 0.04 Nucleated RBCs # 0.00 Sodium 148 H Potassium 3.7 Chloride 111 H Carbon Dioxide 28 Anion Gap 12.7 BUN 5 L Creatinine 0.80 GFR Calculation 123 BUN/Creatinine Ratio 6.00 Glucose 97 POC Glucose 90 Calculated Osmolality 290.3 Calcium 8.4 L - EKG EKG results: interpreted by me, WNL, no acute changes I, Nasir Garcia MD, personally performed the services described in this documentation, ascribed by Rea Newell RN in my presence, and it is both accurate and complete .
--- NOTE | 2016-05-29 15:46 | Cardiology Consult Note ---
Julian Bland Lauren, JADON, am scribing for, and in the presence of, Nasir Garcia MD 15:46. Assessment and Plan - Time spent with patient Time spent with patient: Greater than 30 minutes (1) Elevated troponin Status: Acute Assessment and plan: Troponin elevated on admission at 0.371. Troponin peaked on 05/26/2016 at 0.805. Troponin this morning was 0.152. The patient denies chest pain, palpitations, shortness of breath, dizziness, lightheadedness, syncopal events. He reports having had cardiac evaluation within the last 5 years which was negative. He does not remember the name of his doctor or the facility where testing was done. We will attempt to get records to verify this as he is a poor historian. Current Visit: Yes (2) Acute respiratory failure Status: Acute Assessment and plan: Currently extubated and on O2 via nasal cannula maintaining oxygen saturations greater than 96%. Current Visit: Yes (3) Aspiration pneumonia Status: Acute Assessment and plan: He is currently extubated and receiving Zosyn, oxygen saturations are good on O2 via nasal cannula. He denies shortness of breath. Current Visit: Yes (4) Benzodiazepine overdose Status: Acute Assessment and plan: Currently on one-to-one observation. He is being transferred to the floor. Hospital medicine following. Current Visit: Yes History of Present Illness - Data of Consult Patient: new to practice Consult date: 05/28/16 Requesting Physician: Katja Barnett - Consult Narrative Reason for consult: elevated troponin History of present illness: Mr. Rinaldi is a 55 year old male who was previously followed by a computer meteorologist in [employer]. Mr. Rinaldi is unsure of his computer meteorologist's name and is unsure of his primary care provider's name. He does report seeing a "lady in [place]" for health care. He has a history of hypertension, tobacco use, bipolar disorder, and schizophrenia. He has risk factors significant for: tobacco use, obesity, hypertension, sedentary lifestyle. He reports he has been smoking since he was 14 years old. He presented to the hospital on 05/26/16 with acute respiratory failure. He was found by his mother unresponsive and barely breathing. He was intubated prior to arrival and was extubated yesterday morning. His urine drug screen was positive for benzodiazapines and opiates. He has also been treated for aspiration pneumonia this admission. Upon interview today, the patient admits he probably took too many sleeping pills that he bought. Upon arrival, troponin was found to be 0.371. Troponin peaked at 0.805 and today is down to 0.152. The patient tells me he has no history of heart disease and has had a heart catheterization within the last 5 years that showed "no scar tissue and no blockages" according to him. He also tells me he has undergone stress testing with his primary care provider in [place] within the last 6 months. We will try to obtain records as he is a poor historian and is unsure of many details of his medical history. He denies recent chest pain, shortness of breath, palpitations, lightheadedness, dizziness , or syncopal events. He denies a prior history of hyperlipidemia, diabetes, or cardiac dysrhythmias. He denies a family history of heart disease. Echocardiogram done 05/27/16 reveals normal LV systolic and diastolic function with ejection fraction of 50-55%, mild left ventricular hypertrophy, and mild mitral and tricuspid regurgitation. This patient's elevated troponin is related to his hypoxemia and hypotension related to drug overdose. There is no objective evidence of active ischemia and I think there is no further indication for cardiac workup. CC: Katja Barnett MD - Home Medications and Allergies Home Medications: Home Medications Medication Instructions Recorded Confirmed Type Diazepam [Valium] 10 mg PO BID 05/27/16 05/27/16 History Allergies/Adverse Reactions: Allergies Allergy/AdvReac Type Severity Reaction Status Date / Time No Known Allergies Allergy Verified 05/26/16 10:35 - Constitutional Constitutional: Absent: anorexia, chills, daytime sleepiness, excessive sweating , fatigue, fever(s), frequent falls, headache(s), increased appetite, lethargy, malaise, night sweats, stops breathing during sleep, weakness, weight gain, weight loss - EENT Eyes: Absent: blurry vision, diplopia, loss of vision Ears: Absent: decreased hearing, ear discharge, ear pain Nose, mouth and throat: Absent: dysphagia, epistaxis, headache(s), hoarseness, lip swelling, nasal congestion, neck mass, neck pain, sinus pressure, sore throat, throat swelling, tongue swelling, vertigo - Cardiovascular Cardiovascular: Present: as per HPI. Absent: chest pain at rest, chest pain with activity, claudication, diaphoresis, dyspnea, dyspnea on exertion, edema, radiating jaw, neck or arm pain, lightheadedness, orthopnea, palpitations, PND - Respiratory Respiratory: Present: as per HPI, cough. Absent: dyspnea, hemoptysis, dyspnea on exertion, wheezing, snoring, pain on inspiration - Gastrointestinal Gastrointestinal: Absent: abdominal pain, bloating, change in bowel habits, constipation, diarrhea, dysphagia, heartburn, hematochezia, loose stools, melena , nausea, vomiting - Genitourinary Genitourinary: Absent: difficulty urinating, dysuria, hematuria, nocturia, urinary frequency, urinary incontinence - Musculoskeletal Musculoskeletal: Absent: arthralgias, back pain, joint swelling, limited range of motion, muscle cramps, muscle weakness, myalgias - Neurological Neurological: Absent: abnormal gait, abnormal speech, behavioral changes, convulsions, dizziness, focal weakness, frequent falls, headache(s), memory loss , numbness, paresthesias, radicular pain, syncope, tremor(s) - Psychiatric Psychiatric: Absent: confusion, depression, homicidal ideation, panic attacks, suicidal ideation - Endocrine Endocrine: Absent: cold intolerance, fatigue, heat intolerance, polydipsia, polyphagia - Hematologic/Lymphatic Hematologic/Lymphatic: Absent: easy bleeding, easy bruising, lymphadenopathy Medical,Surgical,& Family Hx - Medical History Psychological: History of: Bipolar Disorder, Schizophrenia - Social History Smoking Status: Current every day smoker Frequency of Alcohol Use: Frequently Type of Drug Use: Unknown, Prescription Drug Abuse Physical Examination Vital Signs Temp Pulse Resp BP Pulse Ox 96.7 F L 107 H 15 140/77 100 05/26/16 10:27 05/26/16 10:27 05/26/16 10:27 05/26/16 10:27 05/26/16 10:27 General: Present: Appears Well, No Apparent Distress HEENT: Present: Normocephaly, Mucus Membranes Moist Neck: Present: Supple Neck, Midline Trachea, No Masses, No Bruit, No Lymphadenopathy, No Thyromegaly Cardiac: Present: Reg Rate and Rhythm, No Murmur Lungs: Present: Normal Exam, Clear Ascult./Percussion, Normal Breath Sounds, No Wheeze, Rales, Rhonchi Neuro: Present: Grossly Intact. Absent: Resting Tremor, Essential Tremor Abdomen: Present: Soft, Active Bowel Sounds, No Masses, No Pulsations/Bruits, Non-Tender Skin: Present: Clear. Absent: Rash Musculoskeletal: Present: No Fluid Collection, No Pain, Normal Range of Motion Gait: Present: Normal Gait Extremities: Present: Normal Gait, No Clubbing, No Cyanosis, No Edema, Normal Upper Extr. Pulses, Normal Lower Extr. Pulses Result/EKG - Labs CBC & BMP: 05/29/16 04:46 05/29/16 04:46 Lab Results: I have reviewed the past 24 hour labs Labs: Laboratory Results - last 24 hr 05/27/16 05/28/16 05/28/16 17:37 01: 06:25 POC Glucose 88 107 H 99 Troponin I 05/28/16 05/28/16 09:01 12:05 POC Glucose 98 Troponin I 0.152 H D - EKG EKG results: interpreted by me, sinus rhythm I, Nasir Garcia MD, personally performed the services described in this documentation, ascribed by Ryann Jordan RN in my presence, and it is both accurate and complete [id number] .
[2016-05-29 16:25] VITALS: BP 142/86
--- NOTE | 2016-05-29 16:31 | Discharge Summary ---
Hospital Course - Hospital Course Hospital Course: Mr Rinaldi presented to ER intubated by EMS after mother found him unresponsive and neither she nor the neighbors could rouse him. He woke up the next day and was extubated and has been stable since. He likely took extra Valium that caused him to sleep deeply prior to arrival. He denies any intention of harming himself. His troponin was mildly elevated. Dr Garcia saw him and did not recommend further cardiac eval. He has had stress test done within the last 6 months that was normal by his report. His echo showed normal LV function. He was also seen by DR Pastor when he was on the vent. He has a mild aspiration pneumonia. He will complete treatment with 7 days of levaquin. He was evaluated by [facility] who was willing to take him for detox, but he refused. He denied intentional overdose and denied suicidal ideation. He will return home with his mother and keep his appointment at [facility] on Wednesday for his depot Abilify and to see the counselor. The SW called [facility] who agreed with this plan. He agrees to let someone know if he becomes depressed or has thoughts of suicide. Per nursing, his mother is aware of the events of this hospitalization and will be present to watch him. - Time spent with patient Time with patient DS: Greater than 30 minutes (discharge planning, medicine reconciliation, documentation) Diagnosis - Discharge Diagnosis (1) Aspiration pneumonia Status: Acute (2) Benzodiazepine overdose Status: Acute (3) Acute respiratory failure Status: Resolved (4) Lactic acidosis Status: Resolved (5) Elevated troponin Status: Resolved Specialty Discharge - Follow Up or Referrals Follow up with: [facility], outpatient [Other] (jun 01 as scheduled.) Your, PCP [Other] (in 1 week for HTN) Discharge Plan - Discharge Data Disposition: Disch To Home/Self Care Condition at Discharge: Stable Discharge Diet: heart healthy Activity: resume usual activities as tolerated - Discharge Medications New predniSONE TAB [PredniSONE] 10 mg PO DAILY #9 tablet Folic Acid Tab 1 mg PO DAILY tablet Levofloxacin Tab [Levaquin Tab] 750 mg PO DAILY #7 tablet Thiamine Tab [Vitamin B1 Tab] 100 mg PO DAILY tablet Continue Diazepam [Valium] 10 mg PO BID - Follow Up or Referral Follow Up: [facility], outpatient [Other] (jun 01 as scheduled.) Your, PCP [Other] (in 1 week for HTN) - Forms/Instructions Exam - Constitutional Vitals: Period Temp Pulse Resp BP Sys/[place] Pulse Ox Last 24 Hr 96.8 F-98.4 F 63-88 18-20 115-158/65-89 93-97 General appearance: normal weight, no acute distress - Head Head exam: Present: normocephalic, atraumatic - Eye Eye exam: Present: EOMI. Absent: scleral icterus - Respiratory Respiratory exam: Present: clear to auscultation bilaterally - Cardiovascular Cardiovascular exam: Present: regular rate and rhythm - GI/Abdominal GI/Abdominal exam: Present: normal bowel sounds, soft. Absent: tenderness - Extremities Exam Extremities exam: Absent: edema Discharge Results Procedures and tests throughout hospitalization: Pending Orders 05/26/16 10:45 Blood Culture Stat Labs on day of discharge: Labs from last 24 hours 05/29/16 05/29/16 05/29/16 13:18 07:41 04:46 WBC RBC Hgb Hct MCV MCH MCHC RDW Plt Count MPV Neut % (Auto) Lymph % (Auto) [place] % (Auto) Eos % (Auto) Baso % (Auto) Neut # (Auto) Lymph # (Auto) [place] # (Auto) Eos # (Auto) Baso # (Auto) Immature Gran % Nucleated RBC % Immature Gran # Nucleated RBCs # Sodium 148 H Potassium 3.7 Chloride 111 H Carbon Dioxide 28 Anion Gap 12.7 BUN 5 L Creatinine 0.80 GFR Calculation 123 BUN/Creatinine Ratio 6.00 Glucose 97 POC Glucose 138 H 90 Calculated Osmolality 290.3 Calcium 8.4 L 05/29/16 05/29/16 05/28/16 04:46 01:31 18:10 WBC 11.7 RBC 4.24 Hgb 13.3 L Hct 38.8 L MCV 91.5 MCH 31 MCHC 34.3 RDW 12.8 Plt Count 211 MPV 11.8 Neut % (Auto) 71.7 Lymph % (Auto) 20.7 L [place] % (Auto) 5.4 Eos % (Auto) 1.5 Baso % (Auto) 0.4 Neut # (Auto) 8.4 H Lymph # (Auto) 2.4 [place] # (Auto) 0.6 Eos # (Auto) 0.2 Baso # (Auto) 0.1 Immature Gran % 0.3 Nucleated RBC % 0.0 Immature Gran # 0.04 Nucleated RBCs # 0.00 Sodium Potassium Chloride Carbon Dioxide Anion Gap BUN Creatinine GFR Calculation BUN/Creatinine Ratio Glucose POC Glucose 89 104 Calculated Osmolality Calcium DS: Provider Date of admission: 05/26/16 11:23 Primary care physician: . 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 Provider: Consult to Specialist Group: Pulmonology When should Consulting Provider be notified: Now 05/26/16 12:59 Consult to Pharmacy [CONS] Routine Reason for Pharmacy Consult: Adjust Meds Renal Funct 05/26/16 13:40 Consult to Dietitian [CONS] Routine Reason for Dietitian: Dietary Consult Consult Comment: admission assessment; history uiunknown 05/28/16 11:19 Consult to Physician [CONS] Routine Comment: Consulting Provider: Consult to Specialist Group: Cardiology When should Consulting Provider be notified: Now Person Notified: DONNELL MERCADO NP Date Notified: 05/28/16 Time Notified: 12:56 Consult Notification Comment: IN PERSON. AWARE OF PT. Discharging clinician: Katja Barnett MD
== END 2016-05-29 17:19 | disposition home or self-care (01) | DRG 917 ==
LOC: EDBD → N.ED 10:26 → N.EDINP 11:23 → N.CC 12:49 → N.4E 05-28 15:32
PROVIDERS: ADMIT Internal Medicine; ATTEND Internal Medicine